=== PATIENT | male | born 1995 | race African-American/Black ===

== ENCOUNTER 2022-04-30 12:22 | Inpatient (IN) | payer OTHER ==
[~2022-04-30] VITALS: Ht 180.3 cm; Wt 45.5 kg
[2022-04-30 14:15] LABS: HEMATOCRIT 45.8 % (42.0-52.0); HEMOGLOBIN 16.7 g/dl (13.5-17.5); MEAN CORPUSCULAR HEMOGLOBIN 32.9 pg (27.0-33.0); MEAN CORPUSCULAR HGB CONC 36.5 g/dl (32.0-36.5); MEAN CORPUSCULAR VOLUME 90.3 fl (80.0-96.0); PLATELET COUNT, AUTOMATED 210 10^3/uL (150-450); RED BLOOD COUNT 5.07 10^6/uL (4.30-6.10); WHITE BLOOD COUNT 7.1 10^3/uL (4.0-10.0)
[2022-04-30 14:33] LABS: AMPHETAMINES LEVEL URINE NEGATIVE (NEGATIVE)
[2022-04-30 14:34] LABS: BARBITURATES URINE NEGATIVE (NEGATIVE); BENZODIAZEPINES URINE NEGATIVE (NEGATIVE); CANNABINOIDS URINE NEGATIVE (NEGATIVE); COCAINE METABOLITE URINE NEGATIVE (NEGATIVE); METHADONE URINE NEGATIVE (NEGATIVE); OPIATES URINE NEGATIVE (NEGATIVE); PHENCYCLIDINE URINE NEGATIVE (NEGATIVE)
[2022-04-30 14:37] LABS: ETHYL ALCOHOL (ETHANOL) 0.005 % (0.000-0.010)
[2022-04-30 14:38] LABS: ACETAMINOPHEN LEVEL < 2.0 UG/ML (10.0-20.0)
[2022-04-30 14:39] LABS: ALBUMIN 4.6 G/DL (3.2-5.2); ALKALINE PHOSPHATASE 70 U/L (46-116); ALT/SGPT 45 U/L (7.0-40); AST/SGOT 40 U/L (<34); BILIRUBIN,DIRECT 0.7 MG/DL (<0.4); BILIRUBIN,TOTAL 1.9 MG/DL (0.3-1.2); BLOOD UREA NITROGEN 11 MG/DL (9-23); CALCIUM LEVEL 9.6 MG/DL (8.5-10.1); CARBON DIOXIDE LEVEL 29 MMOL/L (20-31); CHLORIDE LEVEL 101 MMOL/L (98-107); CREATININE FOR GFR 1.17 MG/DL (0.70-1.30); GLOMERULAR FILTRATION RATE > 60.0 (>60); GLUCOSE, FASTING 77 MG/DL (60-100); POTASSIUM SERUM 3.8 MMOL/L (3.5-5.1); SALICYLATE LEVEL < 3.0 MG/DL (<30); SODIUM LEVEL 139 MMOL/L (136-145); TOTAL PROTEIN 8.1 G/DL (5.7-8.2)
[2022-04-30 14:40] LABS: THYROID STIMULATING HORMONE 1.719 uIU/ML (0.55-4.78)
[2022-04-30 14:44] LABS: RSV AMPLIFICATION NEGATIVE (NEGATIVE)
[2022-04-30] MEDS ORDERED: HOME MED LIST COMPLETE! XX SCH (21:35)
[2022-05-01] MEDS: NICOTINE 21MG/24HR 1 EA TRANSDERMAL TD SCH (09:00)
[2022-05-01] MEDS ORDERED: diphenhydrAMINE 25MG CAP PO PRN (11:40)
[2022-05-01] MEDS ORDERED: MOM 30ML SUSPENSION UDC PO PRN (11:40)
[2022-05-01] MEDS ORDERED: IBUPROFEN 400MG TAB PO PRN (11:40)
[2022-05-01] MEDS ORDERED: traZODone 50 MG TAB PO PRN (11:40)
[2022-05-01] MEDS ORDERED: MAALOX 30 ML SUSP *UDC PO PRN (11:40)
[2022-05-01 15:11] VITALS: BP 124/67
[2022-05-02 06:58] VITALS: BP 118/66
[2022-05-02] MEDS ORDERED: SERTRALINE HCL 50 MG TAB PO SCH (09:00)
[2022-05-02] MEDS: NICOTINE 21MG/24HR 1 EA TRANSDERMAL TD SCH (09:00)
[2022-05-02] MEDS ORDERED: buPROPion 75 MG TAB PO SCH (09:00)
[2022-05-02 15:07] LABS: ALBUMIN 4.3 G/DL (3.2-5.2); BILIRUBIN,DIRECT 0.6 MG/DL (<0.4); BILIRUBIN,TOTAL 1.8 MG/DL (0.3-1.2); TOTAL PROTEIN 7.8 G/DL (5.7-8.2)
[2022-05-02 18:21] VITALS: BP 132/73
[2022-05-03 06:09] VITALS: BP 122/57
[2022-05-03] MEDS ORDERED: SERTRALINE HCL 50 MG TAB PO SCH (09:00)
[2022-05-03] MEDS ORDERED: SERT50TA29 PO (09:48)
== END 2022-05-03 13:28 | disposition home or self-care (01) | DRG 881 ==
LOC: M ED 12:22 → M ED INP 05-01 11:37 → M PSY 05-01 15:02
PROVIDERS: ADMIT Student in an Organized Health Care Education/Training Program; ATTEND Psychiatry & Neurology Psychiatry
DX: F43.21 Adjustment disorder with depressed mood (principal); F10.94 Alcohol use, unspecified with alcohol-induced mood disorder; Z20.822 Contact with and (suspected) exposure to COVID-19; R74.01 Elevation of levels of liver transaminase levels

== ENCOUNTER 2022-05-09 17:29 | Inpatient (IN) | payer OTHER ==
[~2022-05-09] VITALS: Ht 180.3 cm; Wt 100.0 kg
[~2022-05-09 17:29] MED LIST: SERT50TA29 PO
[2022-05-09 18:21] LABS: HEMATOCRIT 43.9 % (42.0-52.0); HEMOGLOBIN 16.1 g/dl (13.5-17.5); MEAN CORPUSCULAR HEMOGLOBIN 32.7 pg (27.0-33.0); MEAN CORPUSCULAR VOLUME 89.2 fl (80.0-96.0); PLATELET COUNT, AUTOMATED 203 10^3/uL (150-450); RED BLOOD COUNT 4.92 10^6/uL (4.30-6.10); WHITE BLOOD COUNT 5.6 10^3/uL (4.0-10.0)
[2022-05-09 18:44] LABS: MEAN CORPUSCULAR HGB CONC 36.7 g/dl (32.0-36.5)
[2022-05-09 18:48] LABS: ETHYL ALCOHOL (ETHANOL) 0.018 % (0.000-0.010)
[2022-05-09 18:49] LABS: ACETAMINOPHEN LEVEL < 2.0 UG/ML (10.0-20.0)
[2022-05-09 18:50] LABS: SALICYLATE LEVEL < 3.0 MG/DL (<30)
[2022-05-09 18:54] LABS: ALBUMIN 4.2 G/DL (3.2-5.2); ALKALINE PHOSPHATASE 66 U/L (46-116); ALT/SGPT 25 U/L (7.0-40); AST/SGOT 28 U/L (<34); BILIRUBIN,DIRECT 0.5 MG/DL (<0.4); BILIRUBIN,TOTAL 1.4 MG/DL (0.3-1.2); BLOOD UREA NITROGEN 13 MG/DL (9-23); CALCIUM LEVEL 9.3 MG/DL (8.5-10.1); CARBON DIOXIDE LEVEL 26 MMOL/L (20-31); CHLORIDE LEVEL 103 MMOL/L (98-107); CREATININE FOR GFR 1.13 MG/DL (0.70-1.30); GLOMERULAR FILTRATION RATE > 60.0 (>60); GLUCOSE, FASTING 106 MG/DL (60-100); POTASSIUM SERUM 3.8 MMOL/L (3.5-5.1); SODIUM LEVEL 139 MMOL/L (136-145); THYROID STIMULATING HORMONE 1.308 uIU/ML (0.55-4.78); TOTAL PROTEIN 7.2 G/DL (5.7-8.2)
[2022-05-09] MEDS ORDERED: SERT50TA29 PO (19:51)
[2022-05-09] MEDS ORDERED: HOME MED LIST COMPLETE! XX SCH (19:55)
[2022-05-09 20:55] LABS: PHENCYCLIDINE URINE NEGATIVE (NEGATIVE)
[2022-05-09 20:56] LABS: AMPHETAMINES LEVEL URINE NEGATIVE (NEGATIVE); BARBITURATES URINE NEGATIVE (NEGATIVE); BENZODIAZEPINES URINE NEGATIVE (NEGATIVE); CANNABINOIDS URINE NEGATIVE (NEGATIVE); COCAINE METABOLITE URINE NEGATIVE (NEGATIVE); METHADONE URINE NEGATIVE (NEGATIVE); OPIATES URINE NEGATIVE (NEGATIVE)
[2022-05-09] MEDS ORDERED: NICOTINE 21MG/24HR 1 EA TRANSDERMAL TD PRN (22:00)
[2022-05-09] MEDS ORDERED: diphenhydrAMINE 25MG CAP PO PRN (22:00)
[2022-05-09] MEDS ORDERED: MOM 30ML SUSPENSION UDC PO PRN (22:00)
[2022-05-09] MEDS ORDERED: ACETAMINOPHEN TAB 650MG DOSE (2X325MG) PO PRN (22:00)
[2022-05-09] MEDS ORDERED: MAALOX 30 ML SUSP *UDC PO PRN (22:00)
[2022-05-10 00:01] VITALS: BP 168/95
[2022-05-10] MEDS: SERTRALINE HCL 50 MG TAB PO SCH (09:41)
[2022-05-10 13:20] VITALS: BP 118/78
[2022-05-10 18:40] VITALS: BP 146/87
[2022-05-10 18:41] VITALS: BP 146/87
[2022-05-10] MEDS: traZODone 50 MG TAB PO PRN (20:48)
[2022-05-11 06:46] VITALS: BP 135/63
[2022-05-11] MEDS: SERTRALINE HCL 50 MG TAB PO SCH (08:37)
[2022-05-11 18:27] VITALS: BP 147/90
[2022-05-11] MEDS: traZODone 50 MG TAB PO PRN (21:19)
[2022-05-12 06:06] VITALS: BP 117/59
[2022-05-12] MEDS: SERTRALINE HCL 50 MG TAB PO SCH (09:45)
[2022-05-12 16:30] VITALS: BP 142/78
[2022-05-12] MEDS: traZODone 50 MG TAB PO PRN (22:17)
[2022-05-13 06:35] VITALS: BP 122/56
[2022-05-13] MEDS: SERTRALINE HCL 50 MG TAB PO SCH (09:13)
[2022-05-13 17:09] VITALS: BP 140/68
[2022-05-13] MEDS: traZODone 50 MG TAB PO PRN (22:51)
[2022-05-14 06:46] VITALS: BP 161/96
[2022-05-14] MEDS: SERTRALINE HCL 50 MG TAB PO SCH (08:47)
== END 2022-05-14 12:37 | disposition home or self-care (01) | DRG 881 ==
LOC: M ED 17:29 → M ED INP 22:00 → M PSY 05-10 00:19
PROVIDERS: ADMIT Student in an Organized Health Care Education/Training Program; ATTEND Psychiatry & Neurology Psychiatry
DX: F43.21 Adjustment disorder with depressed mood (principal); R45.851 Suicidal ideations; F32.A Depression, unspecified